=== PATIENT | female | born 1960 ===

== ENCOUNTER 2025-04-08 05:49 | Day surgery (SDC) | payer OTHER, SELFPAY ==
[2025-03-23 11:42] LABS: Hematocrit 42.8 % (37.0-47.0); Hemoglobin 14.1 g/dL (12.0-16.0); Mean Corp Hgb Conc. 32.9 g/dL (33.0-37.0); Mean Corpuscular Volume 92.6 fL (81.0-99.0); Platelet Count 191 10^3/uL (130-400); Red Cell Dist. Width 13.0 % (11.5-14.5)
[2025-03-23 11:55] LABS: ALT (SGPT) 22 U/L (0-35); AST (SGOT) 26 U/L (14-36); Albumin 4.4 g/dl (3.5-5.0); Alkaline Phosphatase 42 U/L (38-126); Blood Urea Nitrogen 19 mg/dl (7-17); Calcium 9.5 mg/dl (8.4-10.2); Carbon Dioxide 29 mmol/L (22-30); Chloride 107 mmol/L (98-107); Glucose 89 mg/dl (70-99); Potassium 4.5 mmol/L (3.5-5.1); Sodium 140 mmol/L (135-145); Total Protein 7.0 g/dl (6.3-8.2); eGFR > 60.00
[2025-03-23 13:13] LABS: Glycohemoglobin (HgbA1c) 5.6 % (4.0-5.6)
[2025-03-23 14:08] VITALS: BMI 21.4
[2025-03-23 15:46] VITALS: BMI 21.4
--- NOTE | 2025-03-25 11:25 | VNURNOTE ---
Patient is scheduled for an elective R TKA on 04/08 - she is a same day patient with Dr Caldwell. Spoke with patient prior to surgery. Introduced role of [facility] Liaison. Patient reports that she lives with her spouse.
She has a raised toilet seat, cane and rolling walker.
She had VN services after her prior TKA and was same day surgery.
PCP is
Discussed [facility] joint protocol and post surgical plans.
Reviewed that she will have VN services initially and will then start outpatient PT.
Patient selects [facility] for her home care needs and will go to [facility] for outpatient PT. Scheduled for 04/13 .
Patient is in agreement with plan and states that her spouse will be home with her. Advised to bring RW with her day of surgery. Referral placed in [facility].
Plan: [facility] per [facility] joint protocol 04/08 then outpt PT on 04/13
--- NOTE | 2025-03-30 10:15 | CM ---
CM reviewed medical record.s Patient is for SDS joint. [facility] is aware of SDS.
[2025-04-08] VITALS (20 sets, daily range): BP systolic 81–114; BP diastolic 54–72; PULSE 77; O2SAT 100
[2025-04-08] MEDS: TYLENOL 650 MG PO (06:26)
[2025-04-08] MEDS: CELEBREX 200 MG PO (06:27)
[2025-04-08] MEDS: NORMOSOL-R/PLASMALYTE-A 1000 IV ×2 (06:27→09:15)
[2025-04-08] MEDS: ANCEF 5 IV (11:10)
[2025-04-08] MEDS: TYLENOL 1000 MG PO (11:19)
[2025-04-08] MEDS: ZOFRAN 4 MG IV (11:46)
== END 2025-04-08 13:45 | disposition home health service (06) ==
LOC: SDS 05:49
PROVIDERS: ATTENDING PHYSICIAN Orthopaedic Surgery; FAMILY PHYSICIAN Family Medicine; OTHER PHYSICIAN Physician Assistant
DX: M17.11 Unilateral primary osteoarthritis, right knee (principal)
CPT/HCPCS: 27447; C1713; C1776; 36415; 73560; 80053; 83036; 85027; 87070; 93005; 97116; 97162

== ENCOUNTER → 2025-04-20 12:55 | Outpatient (REF) | payer OTHER, SELFPAY | LOC: RAD 12:55 | PROVIDERS: ATTENDING PHYSICIAN Orthopaedic Surgery; FAMILY PHYSICIAN Family Medicine | DX: M79.661 Pain in right lower leg (principal) | CPT/HCPCS: 93971 ==